=== PATIENT | male | born 1995 | race Caucasian/White ===

== ENCOUNTER 2022-11-01 19:32 | Observation (INO) | payer OTHER, SELFPAY ==
[2022-11-01] VITALS (21 sets, daily range): BP systolic 107–155; BP diastolic 60–83; PULSE 85–116; RESP 12–28; TEMP 36.9–39.1; O2SAT 94–99
--- NOTE | ~2022-11-01 | XR_ITS ---
EXAMINATION: XR chest 1V portable DATE: 11/01/2022 21:27 INDICATION: Fever. Twitching. TECHNIQUE: frontal view of the chest was obtained. COMPARISON: None FINDINGS: The lungs are clear with no focal airspace opacities, pulmonary edema, pleural effusion or pneumothor ax. The cardiomediastinal silhouette is normal. Visualized bones and soft tissues are unremarkable. IMPRESSION: 1. Normal chest radiograph. Reviewed, dictated and finalized at location A. IMPRESSION: 1. Normal chest radiograph.
--- NOTE | ~2022-11-01 | XR_ITS ---
EXAMINATION: XR lumbar puncture diagnostic DATE: 11/02/2022 12:24 INDICATION: Headache. Sepsis. TECHNIQUE: The procedure including the risks, benefits, and alternatives was discussed with the patie nt. Risks discussed included spinal headache, cerebrospinal fluid leak, bleeding, and infection. The patient understood the risks and agreed to proceed. A timeout was performed to verify the patient' s name, date of , and procedure to be performed. The skin overlying the L3-L4 level was prepped and draped in usual sterile fashion. Subcutaneous 1% lidocaine was used for local anesthesia. A 20 gauge spinal needle was advanced under fluoroscopic guidance. The needle was removed and the entry s ite was cleaned and dressed. There were no immediate complications. Fluoroscopy exposure time was 0. 1 minutes. The total number of images was 1. FINDINGS: Real-time fluoroscopy demonstrates the needle at the L3-L4 level. The opening pressure was 13 cm water (Normal range is variably defined as 6-20 cm water and up to 25 cm water in obese patient s. Pressure >25 cm water is one of the modified Dandy criteria for idiopathic intracranial hypertensi on). 15 mL of clear, colorless fluid was collected in 4 tubes. IMPRESSION: 1. Successful fluoro-guided lumbar puncture. Reviewed, dictated and finalized at location A.
--- NOTE | ~2022-11-01 | CT_ITS ---
EXAMINATION: CT brain wo con INDICATION: Headache and vision changes COMPARISON: None TECHNIQUE: Standard unenhanced head CT. The dose-length product (DLP) was 605.33 mGy-cm. The mA was a djusted according to patient size. Iterative reconstruction technique was employed. FINDINGS: There is no intracranial hemorrhage, acute infarction, or abnormal mass lesion. The ventric les are normal. There is no abnormal mass effect or midline shift. The cee-white matter differentiat ion is normal. The basal cisterns are patent. The orbits are normal. There is mild mucosal thickening of the paranasal sinuses. IMPRESSION: 1. No acute intracranial abnormality. Reviewed, dictated and finalized at location B.
[2022-11-01 20:04] LABS: Basophils Absolute Auto 0.1 K/mm3 (0.0-0.1); Basophils Percent Auto 0.2 % (0.2-1.2); Hemoglobin 15.8 g/dL (14.0-18.0); Immature Granulocyte Absolute 0.13 K/mm3 (0.00-0.031); Immature Granulocyte Percent A 0.6 % (0-0.5); Lymphocytes Absolute Auto 0.61 K/mm3 (0.9-3.2); Mean Corpuscular HGB Conc 35.9 g/dl (32-36); Mean Corpuscular Hemoglobin 32.2 pg (26-34); Mean Corpuscular Volume 89.6 fl (80-100); Mean Platelet Volume 8.8 fl (7.4-10.4); Monocytes Percent Auto 4.9 % (2.6-8.5); Neutrophils Absolute Auto 18.8 K/mm3 (1.3-6.7); Neutrophils Percent Auto 91.3 % (45.5-73.1); Platelet Count Result 299 k/mm3 (150-375); Red Blood Count 4.91 M/mm3 (4.6-6.20); Red Cell Distribution Width 12.1 % (11.5-14.5); White Blood Count 20.6 K/mm3 (4.5-10.0)
[2022-11-01 20:14] LABS: Ethanol < 10 mg/dL (<10)
[2022-11-01 20:22] LABS: Alanine Aminotransferase 30 U/L (6-50); Albumin Level 4.8 g/dL (3.5-5.1); Alkaline Phosphatase 48 U/L (38-126); Anion Gap 10 mmol/L (8-16); Aspartate Amino Transferase 45 U/L (17-59); Bilirubin,Total 1.1 mg/dL (0.2-1.3); Blood Urea Nitrogen 18 mg/dL (9-20); Calcium 9.3 mg/dL (8.4-10.2); Carbon Dioxide 26 mmol/L (22-30); Chloride 101 mmol/L (98-107); Estimated CRCL calculation 94 ml/min; Estimated Glomerular Filt Rate > 60; Glucose 119 mg/dL (65-110); Potassium 3.7 mmol/L (3.4-5.0); Sodium 137 mmol/L (137-145)
[2022-11-01 20:28] LABS: Band Neutrophils Percent 40 % (0-6); Lymphocytes Absolute Manual 0.61 K/mm3 (1.1-4.5); Monocytes Absolute Manual 0.41 K/mm3 (0.1-0.90); Monocytes Percent Manual 2 % (3-9); Neutrophils Absolute Manual 19.57 K/mm3 (1.3-6.7); Neutrophils Percent Manual 55 % (46-73); Platelet Estimate Adequate (Adequate); Total Cells Counted 100
[2022-11-01 20:29] LABS: Schistocytes None Seen (NORMAL)
--- NOTE | 2022-11-01 21:02 | ECG_ITS ---
Measurements Intervals [place] Rate: 87 P: 64 TN: 166 QRS: 53 QRSD: 92 T: 19 QT: 329 QTc: 397 Interpretive Statements SINUS RHYTHM NO PREVIOUS ECG AVAILABLE FOR COMPARISON Electronically Signed On 11-02-2022 13:46:00 CDT by Rashmi Nevarez M.D.
[2022-11-01] MEDS: ACETAMINOPHEN 500 MG TABLET 1000 MG PO (21:13)
[2022-11-01] MEDS: SODIUM CHLORIDE 0.9% IV 1,000 ML 999 ML IV CONT ×3 (21:14→21:56)
[2022-11-01 21:39] LABS: Erythrocyte Sedimentation Rate 11 mm/hr (0-20)
[2022-11-01 21:49] LABS: Lactic Acid Reflex 1.5 mmol/L (0.7-2.0)
[2022-11-01 21:49] LABS: Creatine Kinase 251 U/L (55-170)
[2022-11-01 21:50] LABS: Monoscreen Negative (Negative); Negative Monotest Control Negative (Negative); Positive Monotest Control Positive (Positive)
[2022-11-01 21:52] LABS: CRP 1.8 mg/dL (<1.0); Magnesium 1.3 mg/dL (1.6-2.3)
[2022-11-01] MEDS: PIPERACILLN/TAZ 3.375GM/NS50ML 3.375 GM/50 ML BAG IVPB (21:55)
[2022-11-01 22:00] LABS: Strep Group A RT-PCR NOT DETECTED (Negative)
[2022-11-01 22:14] LABS: Influenza A QL RT-PCR Negative (Negative); Influenza B QL RT-PCR Negative (Negative); RSV RNA, RT-PCR Negative (Negative); SARS-CoV-2 RNA PCR Negative (Negative)
[2022-11-01 22:24] LABS: Appearance Urine Clear (Clear); Bilirubin Urine Negative (Negative); Blood Urine Negative (Negative); Color Urine Yellow (Yellow); Glucose Urine UA Negative (Negative); Ketones Urine Negative (Negative); Leukocyte Esterase Ur Negative LEU/UL (Negative); Nitrate Urine Negative (Negative); Protein Urine Negative (Negative)
--- NOTE | 2022-11-01 22:37 | ED.GENADULT ---
HPI - General Adult General Chief complaint: Unspecified Stated complaint: fever, twitching Time Seen by Provider: 11/01/22 20:49 History of Present Illness HPI narrative: Patient is a 26-year-old gentleman who presents the emergency department with chief complaint of fever and body aches and twitching. Per the patient he reports that today he started having a low-grade temperature and was working outside. The patient states that when he came back inside afterwards he is went up to 103 on his fever patient reports generalized body aches does report a headache and then reported that he started having twitching and involuntary muscle movements of his body when he was running a fever. The patient denies altered mental status denies focal neurological deficit Related Data Allergies Allergy/AdvReac Type Severity Reaction Status Date / Time No Known Allergies Allergy Verified 11/01/22 19:38 Course Vital Signs Vital signs: Vital Signs Temperature 37.8 C H 11/01/22 19:33 Pulse Rate 116 H 11/01/22 19:33 Respiratory Rate 12 11/01/22 19:33 Blood Pressure 131/79 11/01/22 19:33 Pulse Oximetry 99 11/01/22 19:33 Oxygen Delivery Room Air 11/01/22 19:33 Temperature 36.9 C 11/01/22 22:00 Pulse Rate 85 11/01/22 22:00 Respiratory Rate 20 11/01/22 22:00 Blood Pressure 155/69 H 11/01/22 22:00 Pulse Oximetry 97 11/01/22 22:00 Oxygen Delivery Room Air 11/01/22 19:33 Medical Decision Making [facility] [place] Narrative Medical decision making narrative: Differential diagnosis includes sepsis, viral syndrome, heat exhaustion/stroke electrolyte abnormality, Laboratory studies were obtained and the patient showed a white count of 20,000 with a 40% bandemia this was concerning for sepsis and the patient was emergently given 30/kg of normal saline boluses and was given antipyretics. The patient was also started on broad-spectrum antibiotic coverage including Zosyn and vancomycin blood cultures were obtained on the patient lactic acid was also obtained. Lactic acid was l 1.5. Electrolytes were otherwise within normal limits magnesium was 1.3 this was replaced with 2 g of magnesium sulfate. Patient had an elevated CRP at 1.8 this is only slightly elevated and CRP was elevated at 251. The patient is starting to feel better the muscle twitching has stopped at this time the case was discussed with the hospitalist and the patient will be admitted to the hospital also urinalysis and urine drug screen were negative strep and COVID and influenza and mono spot were all negative Chest x-ray showed no evidence of focal infiltrate Vital Signs Vital Signs: Vital Signs Temperature 37.8 C H 11/01/22 19:33 Pulse Rate 116 H 11/01/22 19:33 Respiratory Rate 12 11/01/22 19:33 Blood Pressure 131/79 11/01/22 19:33 Pulse Oximetry 99 11/01/22 19:33 Oxygen Delivery Room Air 11/01/22 19:33 Temperature 36.9 C 11/01/22 22:00 Pulse Rate 85 11/01/22 22:00 Respiratory Rate 20 11/01/22 22:00 Blood Pressure 155/69 H 11/01/22 22:00 Pulse Oximetry 97 11/01/22 22:00 Oxygen Delivery Room Air 11/01/22 19:33 Lab Data 11/01/22 19:55 11/01/22 19:55 Labs: Lab Results 11/01/22 11/01/22 11/01/22 Range/Units 19:55 21:24 21:33 WBC 20.6 H (4.5-10.0) K/mm3 RBC 4.91 (4.6-6.20) M/mm3 Hgb 15.8 (14.0-18.0) g/dL Hct 44.0 (42.0-52.0) % MCV 89.6 (80-100) fl MCH 32.2 (26-34) pg MCHC 35.9 (32-36) g/dl RDW 12.1 (11.5-14.5) % Plt Count 299 (150-375) k/mm3 MPV 8.8 (7.4-10.4) fl Immature Gran % (Auto) 0.6 H (0-0.5) % Neut % (Auto) 91.3 H (45.5-73.1) % Lymph % (Auto) 3.0 L (18.3-44.2) % [place] % (Auto) 4.9 (2.6-8.5) % Eos % (Auto) 0.0 (0-4.4) % Baso % (Auto) 0.2 (0.2-1.2) % Lymph # (Auto) 0.61 L (0.9-3.2) K/mm3 [place] # (Auto) 1.0 H (0.1-0.6) K/mm3 Eos # (Auto) 0.0 (0-0.3) K/mm3 Baso # (Auto) 0.1
[2022-11-01 22:39] LABS: Amphetamine Screen Urine Negative (Negative); Barbiturate Screen Urine Negative (Negative); Benzodiazepines Screen Urine Negative (Negative); Cannabinoid Screen Urine Negative (Negative); Cocaine Screen Urine Negative (Negative); Methadone Screen Urine Negative (Negative); Opiate Screen Urine Negative (Negative); Phencyclidine Screen Urine Negative (Negative)
[2022-11-01] MEDS: MAGNESIUM SULF 2 GM/WATER 50ML 2 GM/50 ML BAG IVPB (22:40)
[2022-11-01 22:41] LABS: Add Urine Microscopic? NO
--- NOTE | 2022-11-01 22:43 | PM.IMHP ---
H&P: HPI History of Present Illness Date/Time: 11/01/22 22:43 Chief Complaint: Fever Narrative: This is a 26-year-old male with known significant past medical history patient presents to the emergency room after he had an episode of fever and rigors, patient has been his usual state of health up until this point had been outside doing some yd work but had gone back in the house for several hours, the day before was fine, denies any nausea, vomiting, diarrhea, abdominal pain complains of body aches and pains muscle pain, twitching he was found to have a temp of 103? a headache and blurry vision no neck pain or neck rigidity in emergency room his temperature was 98 ? no recent travel, no camping, no lymphadenopathies, no cough, no sputum production, no sore throat, no nasal congestion, no chest congestion. Preliminary workup was significant for a white count of 20,000 with a band count of 40% a chest x-ray was reported as: EXAMINATION: XR chest 1V portable DATE: 11/01/2022 21:27 INDICATION: Fever. Twitching. TECHNIQUE: frontal view of the chest was obtained. COMPARISON: None FINDINGS: The lungs are clear with no focal airspace opacities, pulmonary edema, pleural effusion or pneumothorax. The cardiomediastinal silhouette is normal. Visualized bones and soft tissues are unremarkable. IMPRESSION: 1. Normal chest radiograph. Review of Systems Review of Systems: Fever, muscle aches and pains, twitching Constitutional: Constitutional: Reports chills, Reports fever(s), Reports headache(s) and Denies poor appetite Eyes: Eyes: Reports blurry vision ENT: Denies dysphagia, Denies nasal congestion, Denies nasal discharge and Denies odynophagia Cardiovascular: Cardiovascular: Denies chest pain, Denies leg edema and Denies palpitations Respiratory: Respiratory: Denies chest congestion, Denies cough, Denies excessive phlegm production and Denies pain on inspiration Gastrointestinal: Gastrointestinal: Denies abdominal pain, Denies dyspepsia, Denies heartburn, Denies diarrhea, Denies loose stools, Denies nausea and Denies vomiting Genitourinary: Genitourinary: Denies dysuria and Denies flank pain Musculoskeletal: Musculoskeletal: Reports myalgias, Reports muscle cramps, Denies neck pain and Denies stiffness Integumentary/Breasts: Skin/Breast: Denies rash Neurologic: Denies focal weakness and Denies Sensory deficit (Neuro) Psychiatric: Psychiatric: Reports no additional psychiatric complaints and Reports as per HPI Endocrine: Endocrine: Denies cold intolerance, Denies flushing, Denies heat intolerance, Denies polyphagia, Denies polydipsia and Denies palpitations Hematologic/Lymphatic: Hematologic/Lymphatic: Reports no additional hematologic/lymphatic complaints and Reports as per HPI Allergic/Immunologic: Allergic/Immunologic: Reports no additional allergic/immunologic complaints and Reports as per HPI PMFSH Family History Family History (Updated 11/02/22 @ 00:03 by Luz Sandy RN) Mother Acute myocardial infarction Hypertension Grandparent Acute myocardial infarction Asthma Cerebrovascular accident History of blood clots Chronic obstructive pulmonary disease Colon cancer Congestive heart failure Diabetes mellitus Hypertension Sibling Asthma Father Diabetes mellitus Prostate carcinoma Social History Social History Smoking status: Current every day smoker Tobacco type: e-cigarettes/vaping Alcohol intake: never Substance use: never Lack of Transportation: No Lack of Food: Never True Current Housing: I Have Housing Concerned About Future Housing: No Difficulty Paying Gas/Electric Bills: No Difficulty Paying for Meds: No Currently Unemployed: No Education: High School Diploma/GED Difficulty w/ Childcare or Family Care: No Spiritual care concerns: No Meds Home Medications and Allergies Home Medications Medication Instructions Recorded Confirmed Type
--- NOTE | 2022-11-01 23:59 | ADMGEN ---
This patient, Salvador Renae, was admitted to Medical Room 349-01. Patient/family oriented to hospital policies and general routines including ID bracelet, bed and alarms, visiting hours, pain management, procedures, bathroom and other care routines, personal items, smoking policy, room service/diet, and visiting hours. Information on how to activate the Rapid Response Team has been discussed. Patient/Family are encouraged to report perceived risks to care and to ask questions if they do not understand what they are told or what they should do.
[2022-11-02] VITALS (8 sets, daily range): BP systolic 116–132; BP diastolic 55–70; PULSE 81–93; RESP 17–20; TEMP 36.3–37.2; O2SAT 92–97; BMI 25.9
[2022-11-02 01:38] LABS: Hematocrit 39.9 % (42.0-52.0); Hemoglobin 14.1 g/dL (14.0-18.0); Mean Corpuscular HGB Conc 35.3 g/dl (32-36); Mean Corpuscular Hemoglobin 32.3 pg (26-34); Mean Corpuscular Volume 91.5 fl (80-100); Mean Platelet Volume 8.8 fl (7.4-10.4); Platelet Count Result 255 k/mm3 (150-375); Red Blood Count 4.36 M/mm3 (4.6-6.20); Red Cell Distribution Width 12.2 % (11.5-14.5); White Blood Count 20.2 K/mm3 (4.5-10.0)
[2022-11-02 01:56] LABS: Alanine Aminotransferase 23 U/L (6-50); Albumin Level 3.5 g/dL (3.5-5.1); Alkaline Phosphatase 38 U/L (38-126); Anion Gap 6 mmol/L (8-16); Aspartate Amino Transferase 26 U/L (17-59); Bilirubin,Total 1.4 mg/dL (0.2-1.3); Blood Urea Nitrogen 15 mg/dL (9-20); Calcium 8.2 mg/dL (8.4-10.2); Carbon Dioxide 25 mmol/L (22-30); Chloride 106 mmol/L (98-107); Estimated CRCL calculation 103 ml/min; Estimated Glomerular Filt Rate > 60; Glucose 120 mg/dL (65-110); Magnesium 2.1 mg/dL (1.6-2.3); Potassium 3.4 mmol/L (3.4-5.0); Sodium 137 mmol/L (137-145)
[2022-11-02 02:01] LABS: Band Neutrophils Percent 58 % (0-6); Lymphocytes Absolute Manual 1.21 K/mm3 (1.1-4.5); Metamyelocytes Percent 3 %; Monocytes Percent Manual 1 % (3-9); Neutrophils Absolute Manual 18.18 K/mm3 (1.3-6.7); Neutrophils Percent Manual 32 % (46-73); Platelet Estimate Adequate (Adequate); Total Cells Counted 100
[2022-11-02 02:02] LABS: Burr Cells 1+ (NORMAL); Poikilocytosis 1+ (NORMAL); Schistocytes None Seen (NORMAL)
[2022-11-02] MEDS: SODIUM CHLORIDE 0.9% IV 1,000 ML 125 ML IV CONT (02:20)
[2022-11-02] MEDS: PIPERACILLN/TAZ 3.375GM/NS50ML 3.375 GM/50 ML BAG IVPB (06:09)
--- NOTE | 2022-11-02 10:42 | PM.IMPN ---
Progress Note: A&P Assessment and Plan (1) Sepsis: Qualifiers: Sepsis acute organ dysfunction status: unspecified Sepsis type: sepsis due to unspecified organism Qualified Code(s): A41.9 - Sepsis, unspecified organism Code(s): A41.9 - Sepsis, unspecified organism Status: Acute Assessment and Plan: patient presented with fever, tachycardia, leukocytosis WBC 20 with 20% bandemia and suspected infection. He was treated with empiric vancomycin and Zosyn IV 3 liters NS fluids given in ED. Monitor hemodynamics. Blood cultures pending. (2) Acute febrile illness: Code(s): R50.9 - Fever, unspecified Status: Acute Assessment and Plan: As above. Continue sepsis work up and supportive care with antipyretics. Will check 4th gen HIV 1/2 for completion sake. He has not has been tested to his knowledge. (3) Meningitis: Code(s): G03.9 - Meningitis, unspecified Status: Suspected Assessment and Plan: Patient presented with sepsis picture and fever >103F with associated GARCIA, vision changes, malaise, generalized pain that is burning in sensation suggesting neuropathy. Concern for possible meningitis/encephalitis change antibiotics to IV Vancomycin with pharmacy dosing, IV Rocephin 2 grams Q12 hours, and Acyclovir 800 mg Q8 hours LP today with CSF cell count, gram stain, fluid culture, HSV, Lyme, EBV, and VDRL. Serum ZVZ, Lyme antibody, and CMV. Monitor neuro status continue antipyretics for fever and pain. Consider neurology consult if symptoms worsen. CT head negative for acute findings. Plan code status: full code discharge disposition: from home, independent ADLs Antibiotic: day 1 Rocephin and Azithromycin. Day 2 Vancomycin Diet: Regular Time Spent With Patient Time with patient: 25 - 35 minutes Subjective Date/time seen: 11/02/22 10:42 Interval history: Patient lying in bed with mother at bedside. He reports generalized body aches with a burning sensation. He has a headache that is prominent behind his eyes and endorses blurry vision. His mother reports the patient had unusual, uncontrollable head shaking prior to coming to the ED and reportedly had involuntary knee knocking on the way to the hospital. The patient was reportedly not conscious of this. He denies recent medication changes, change in food or liquid intake. No recent camping trips or known sick contacts. 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 He denies cough, SOB, chest pain, palpitations, sputum, N/V/D, abd pain, dysuria, flank pain. He had a recent tattoo to his abdomen, but denies complications. No penile ulcers or abnormal discharge. He is in a monogamous relationship for the past year and denies concern for STIs. He had numerous vaccinations when entering service but is unsure which ones. 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 Review of Systems Review of Systems: All systems reviewed & are unremarkable except as noted in HPI and below Exam Narrative: General: No acute respiratory distress.?Ill-appearing adult male lying in bed. Mental Status/Psych: Awake, tired appearing and oriented x4. Cooperative. Neutral mood and affect. Skin: fair, warm, dry and intact without rashes or lesions. Multiple tattoos to chest, trunk, BUE and LLE. No erythema, edema, or discharge noted. HEENT: Normocephalic. Atraumatic. Sclera non-icteric. PERRL. EOM intact without nystagmus. Oral mucosa pink and dry. oropharynx unremarkable. Neck: Supple. No JVD. Heart: S1 and S2 regular rate and rhythm. No murmurs, gallops, or rubs auscultated. Chest: Respirations even and unlabored. Lung sounds are clear to auscultation without wheezes, rhonchi, or rales. Abd
[2022-11-02] MEDS: cefTRIAXone 2 GM/NS 100 ML 2 GM/100 ML BAG IVPB ×2 (11:08→21:43)
[2022-11-02 11:22] LABS: Creatine Kinase 148 U/L (55-170)
[2022-11-02 11:24] LABS: INR 1.3; Prothrombin Time 17.3 Seconds (11.1-14.7)
[2022-11-02 11:26] LABS: Partial Thromboplastin Time 36.7 SECONDS (22.3-36.8)
[2022-11-02 11:52] LABS: Procalcitonin 1.4 ng/mL
[2022-11-02 12:37] LABS: Glucose CSF 68 mg/dL (40-70); Total Protein CSF 71 mg/dL (12-60)
[2022-11-02] MEDS: ACETAMINOPHEN 325 MG TABLET 650 MG PO ×2 (12:37→16:56)
[2022-11-02] MEDS: ACYCLOVIR SODIUM IVPB 800 MG in DEXTROSE 5% IN WATER 250 ML 266 MG IVPB (13:01)
[2022-11-02 13:19] LABS: Appearance CSF Clear (Clear); CSF source CSF; Color CSF Colorless (Colorless); Nucleated Cell CSF 4 /uL (0-5)
[2022-11-02 13:21] LABS: Red Blood Cell CSF < 2000 (0-2)
[2022-11-02 13:26] LABS: Macrophages CSF 5; Monocytes CSF 25 % (15-45); Other Cells CSF 10 %
[2022-11-02 13:27] LABS: Lymphocytes CSF 60 % (40-80)
[2022-11-02] MEDS: ACYCLOVIR SODIUM IVPB 800 MG in DEXTROSE 5% IN WATER 250 ML 250 MG IVPB (21:44)
[2022-11-03 05:10] VITALS: BP 126/64; PULSE 84; RESP 18; TEMP 37.4; O2SAT 94
[2022-11-03 05:48] LABS: Basophils Percent Auto 0.3 % (0.2-1.2); Eosinophils Absolute Auto 0.1 K/mm3 (0-0.3); Eosinophils Percent Auto 0.6 % (0-4.4); Hematocrit 39.7 % (42.0-52.0); Immature Granulocyte Absolute 0.04 K/mm3 (0.00-0.031); Immature Granulocyte Percent A 0.4 % (0-0.5); Lymphocytes Absolute Auto 1.58 K/mm3 (0.9-3.2); Mean Corpuscular HGB Conc 35.3 g/dl (32-36); Mean Corpuscular Volume 90.6 fl (80-100); Mean Platelet Volume 8.8 fl (7.4-10.4); Monocytes Absolute Auto 0.7 K/mm3 (0.1-0.6); Monocytes Percent Auto 5.9 % (2.6-8.5); Neutrophils Absolute Auto 8.9 K/mm3 (1.3-6.7); Neutrophils Percent Auto 78.8 % (45.5-73.1); Platelet Count Result 267 k/mm3 (150-375); Red Blood Count 4.38 M/mm3 (4.6-6.20); Red Cell Distribution Width 12.2 % (11.5-14.5); White Blood Count 11.3 K/mm3 (4.5-10.0)
[2022-11-03 06:11] LABS: Alanine Aminotransferase 26 U/L (6-50); Albumin Level 3.8 g/dL (3.5-5.1); Alkaline Phosphatase 45 U/L (38-126); Anion Gap 6 mmol/L (8-16); Aspartate Amino Transferase 32 U/L (17-59); Bilirubin,Total 0.6 mg/dL (0.2-1.3); Blood Urea Nitrogen 7 mg/dL (9-20); Calcium 8.5 mg/dL (8.4-10.2); Carbon Dioxide 26 mmol/L (22-30); Chloride 106 mmol/L (98-107); Estimated CRCL calculation 103 ml/min; Estimated Glomerular Filt Rate > 60; Glucose 101 mg/dL (65-110); Potassium 3.9 mmol/L (3.4-5.0); Sodium 138 mmol/L (137-145)
[2022-11-03] MEDS: ACYCLOVIR SODIUM IVPB 800 MG in DEXTROSE 5% IN WATER 250 ML 250 MG IVPB ×2 (06:44→15:05)
[2022-11-03 08:00] VITALS: PULSE 84; RESP 18; O2SAT 94
[2022-11-03 08:06] LABS: Procalcitonin 1.2 ng/mL
[2022-11-03] MEDS: ACETAMINOPHEN 325 MG TABLET 650 MG PO ×3 (08:15→22:05)
[2022-11-03 09:19] LABS: HIV 1/2 Ab P24 Ag Result Negative (Negative)
[2022-11-03] MEDS: cefTRIAXone 2 GM/NS 100 ML 2 GM/100 ML BAG IVPB ×2 (09:35→21:58)
[2022-11-03 10:28] LABS: Vancomycin Trough 8.2 ug/mL (10.0-20.0)
[2022-11-03 14:00] VITALS: BP 108/58; PULSE 63; RESP 18; TEMP 36.8; O2SAT 100
--- NOTE | 2022-11-03 17:26 | PM.IMPN ---
Progress Note: A&P Assessment and Plan (1) Sepsis: Qualifiers: Sepsis acute organ dysfunction status: unspecified Sepsis type: sepsis due to unspecified organism Qualified Code(s): A41.9 - Sepsis, unspecified organism Code(s): A41.9 - Sepsis, unspecified organism Status: Acute Assessment and Plan: patient presented with fever, tachycardia, leukocytosis WBC 20 with 20% bandemia and suspected infection. He was treated with empiric vancomycin and Zosyn IV. 11/02/22 changed to IV vancomycin, IV Rocephin q.12 and IV acyclovir for concerns of meningitis/encephalitis 3 liters NS fluids given in ED. Monitor hemodynamics. Blood cultures negative today Hemodynamically stable (2) Meningitis: Code(s): G03.9 - Meningitis, unspecified Status: Suspected Assessment and Plan: Patient presented with sepsis picture and fever >103F with associated GARCIA, vision changes, malaise, generalized pain that is burning in sensation suggesting neuropathy. Concern for possible meningitis/encephalitis change antibiotics to IV Vancomycin with pharmacy dosing, IV Rocephin 2 grams Q12 hours, and Acyclovir 800 mg Q8 hours 11/02 LP completed. CSF cell count showing clear, colorless CSF fluid greater than 2000 RBCs, neutrophils/lymphocytes/monocytes all within normal limits. Total protein mildly elevated 71 but may be secondary to traumatic tap. gram stain with rare wbc's but knows organism seen at this time, fluid culture pending. viral CSF tests HSV, Lyme, EBV, and VDRL pending. Serum ZVZ, Lyme antibody, and CMV pending Monitor neuro status continue antipyretics for fever and pain. Consider neurology consult if symptoms worsen. Will hold off for now as patient appears to be improving CT head negative for acute findings. WBC 20 to 11 today 11/03. (3) Acute febrile illness: Code(s): R50.9 - Fever, unspecified Status: Acute Assessment and Plan: As above. Continue sepsis work up and supportive care with antipyretics. 4th gen HIV 1/2 negative. Improving Plan code status: full code discharge disposition: from home, independent ADLs Antibiotic: day 2 Rocephin and Azithromycin. Day 3 Vancomycin Diet: Regular Time Spent With Patient Time with patient: 25 - 35 minutes Subjective Date/time seen: 11/03/22 17:26 Interval history: Patient reports he is feeling better and has not had a fever in the past 24 hours. His headache is improved in vision changes have resolved. He denies a general body aches today. Neuropathy unchanged. His mother and significant other are at bedside and report no abnormal muscle movements or mental status changes. Exam Narrative: General: No acute respiratory distress.?adult male lying in bed. Nontoxic. Mental Status/Psych: Awake, oriented x4. Cooperative. Neutral mood and affect. Skin: fair, warm, dry and intact without rashes or lesions. Multiple tattoos to chest, trunk, BUE and LLE. No erythema, edema, or discharge noted. HEENT: Normocephalic. Atraumatic. Sclera non-icteric. PERRL. EOM intact without nystagmus. Oral mucosa pink and dry. Neck: Supple. No JVD. Heart: S1 and S2 regular rate and rhythm. No murmurs, gallops, or rubs auscultated. Chest: Respirations even and unlabored. Lung sounds are clear to auscultation without wheezes, rhonchi, or rales. Abdomen: Soft, round and non-tender to palpation.? Bowel sounds present in all 4 quadrants. No guarding, suprapubic or CVA tenderness. Extremities:? No edema, erythema or calf tenderness. Major joints without erythema, effusion or point tenderness. Muscle strength 5/5 all extremities. Neurological: No focal deficits. neuropathy toes on left side. Cranial nerves grossly 2-12 intact.Follows all commands. no tremors or fasciculations. ? Objective Data Vital Signs Vital Signs: Vital Signs - 24 hr 11/02/22 20:46 11/02/22 20:00 11/03/22 05:10 Temperature 98.3 F 99.4 F Pu
[2022-11-03 20:00] VITALS: BP 122/66; PULSE 83; RESP 18; TEMP 36.2; O2SAT 97
[2022-11-03] MEDS: ACYCLOVIR SODIUM IVPB 800 MG in DEXTROSE 5% IN WATER 250 ML 125 MG IVPB (21:58)
[2022-11-03] MEDS: IBUPROFEN 400 MG TABLET PO (23:21)
[2022-11-04 06:06] VITALS: BP 122/65; PULSE 77; RESP 16; TEMP 36.7; O2SAT 98
[2022-11-04 06:35] LABS: Basophils Percent Auto 0.4 % (0.2-1.2); Eosinophils Absolute Auto 0.2 K/mm3 (0-0.3); Hematocrit 38.8 % (42.0-52.0); Hemoglobin 13.7 g/dL (14.0-18.0); Immature Granulocyte Absolute 0.04 K/mm3 (0.00-0.031); Immature Granulocyte Percent A 0.5 % (0-0.5); Lymphocytes Absolute Auto 2.22 K/mm3 (0.9-3.2); Lymphocytes Percent Auto 27.8 % (18.3-44.2); Mean Corpuscular HGB Conc 35.3 g/dl (32-36); Mean Corpuscular Volume 90.7 fl (80-100); Mean Platelet Volume 8.8 fl (7.4-10.4); Monocytes Absolute Auto 0.7 K/mm3 (0.1-0.6); Monocytes Percent Auto 8.8 % (2.6-8.5); Neutrophils Absolute Auto 4.8 K/mm3 (1.3-6.7); Neutrophils Percent Auto 59.5 % (45.5-73.1); Platelet Count Result 268 k/mm3 (150-375); Red Blood Count 4.28 M/mm3 (4.6-6.20); Red Cell Distribution Width 12.3 % (11.5-14.5)
[2022-11-04] MEDS: ACYCLOVIR SODIUM IVPB 800 MG in DEXTROSE 5% IN WATER 250 ML 125 MG IVPB (06:45)
[2022-11-04 08:26] LABS: Hepatitis B Surface Antigen Negative (Negative)
[2022-11-04 08:32] LABS: HAV RESULT Negative (Negative); Hepatitis B Core IgM Result Negative (Negative)
[2022-11-04] MEDS: cefTRIAXone 2 GM/NS 100 ML 2 GM/100 ML BAG IVPB (08:38)
[2022-11-04 08:43] LABS: Hepatitis C Virus Antibody Negative (Negative)
--- NOTE | 2022-11-04 11:44 | PM.DS ---
DS: Admitting Diagnosis Discharge Date 11/04/2022 Admitting Diagnosis Acute febrile illness Sepsis DS: Discharge Diagnosis Discharge Diagnosis (1) Sepsis: Qualifiers: Sepsis acute organ dysfunction status: unspecified Sepsis type: sepsis due to unspecified organism Qualified Code(s): A41.9 - Sepsis, unspecified organism Code(s): A41.9 - Sepsis, unspecified organism Status: Acute Assessment and Plan: patient presented with fever, tachycardia, leukocytosis WBC 20 with 20% bandemia and suspected infection. He was treated with empiric vancomycin and Zosyn IV. 11/02/22 changed to IV vancomycin, IV Rocephin q.12 and IV acyclovir for concerns of meningitis/encephalitis 3 liters NS fluids given in ED. Blood cultures negative x48 hours. Hemodynamically stable (2) Meningitis: Code(s): G03.9 - Meningitis, unspecified Status: Suspected Assessment and Plan: Patient presented with sepsis picture and fever >103F with associated GARCIA, vision changes, malaise, generalized pain that is burning in sensation suggesting neuropathy. Concern for possible meningitis/encephalitis changde antibiotics to IV Vancomycin with pharmacy dosing, IV Rocephin 2 grams Q12 hours, and Acyclovir 800 mg Q8 hours 11/02 LP completed. CSF cell count showing clear, colorless CSF fluid greater than 2000 RBCs, neutrophils/lymphocytes/monocytes all within normal limits. Total protein mildly elevated 71 but may be secondary to traumatic tap. gram stain with rare wbc's but knows organism seen at this time, fluid culture without growth x48 hours. viral CSF tests HSV, Lyme, EBV, and VDRL pending. Serum ZVZ, Lyme antibody, and CMV pending Monitor neuro status continue antipyretics for fever and pain. CT head negative for acute findings. WBC 20 to 11 to 8.2 on 11/04. Afebrile >48 hours. (3) Acute febrile illness: Code(s): R50.9 - Fever, unspecified Status: Acute Assessment and Plan: As above. Continue sepsis work up and supportive care with antipyretics. 4th gen HIV 1/2 negative. Resolved. DS: Summary Hospital Course Reason for hospitalization: fever Hospital Course: Patient is a 26-year-old male with neuropathy during his time in the , but otherwise healthy. He presented to the emergency room after he had an episode of fever Tmax 103F and rigors. He also was noted to have uncontrolled head and leg movements, but did not appear to be having a seizure, reportedly. He had associated generalized myalgias, malaise, headache and blurry vision. Prior to admission, he was outside doing yard work for approximately 4 hours, but this is not unusual for the patient. He denied change in eating or drinking habits, nausea, vomiting, diarrhea, abdominal pain, neck pain or neck rigidity. He denied recent travel, camping, rashes, penile lesions or discharge, lymphadenopathy, cough, sputum production, sore throat, nasal congestion, or chest congestion.? Preliminary workup was significant for a white count of 20,000 with bandemia of 40%. Chest x-ray was negative. He was admitted to the medical floor and treated with IV fluids. He was given IV Vancomycin and IV Zosyn in the ED. WBC remained elevated 20 after 24 hours and he had low grade fevers. He continued to have GARCIA, blurry vision and generalized myalgias. Lumbar puncture was obtained and CSF fluid was sent for culture, gram stain, lyme and viral serology. Serum viral serology was sent. Serum hepatitis and HIV 1/2. Serum HSV, EBV, and ZVZ were pending at discharge. Serum lyme was pending at discharge. Gram stain and CSF culture were negative. CSF fluid was colorless, normal neutrophil count, glucose was normal, total protein was mildly elevated and increased RBC were noted. Zosyn was stopped. IV Rocephin 2 grams Q24 hour and Acyclovir 800 mg Q8 hours IV for possible meningitis 11/02-11/04. Vancomycin IV was also continued, however, vancomycin troug
[2022-11-06 00:10] LABS: Herpes Simplex Type 1 DNA PCR Not Detected (Not Detected); Herpes Simplex Type 2 DNA PCR Not Detected (Not Detected)
[2022-11-06 01:42] LABS: CMV DNA Quant PCR IU/mL Not Detected; Cytomegalovirus DNA Quant PCR Not Detected log IU/mL; Cytomegalovirus DNA Source Serum
[2022-11-06 13:34] LABS: Epstein Barr Virus DNA PCR Not Detected (Not Detected); Source Epstein Barr Virus CSF
[2022-11-07 14:00] LABS: Lyme Disease Ab (IgM), Blot Negative (Negative); Lyme Disease Ab(IgG), Blot Negative (Negative)
[2022-11-07 14:41] LABS: VDRL Quantitative CSF Nonreactive (Nonreactive)
[2022-11-07 15:42] LABS: Varicella IgM Antibody <=0.90 (<=0.90)
== END 2022-11-04 12:54 | disposition home or self-care (01) ==
LOC: ANHED 22:43 → ANH3MED 11-02 00:47
PROVIDERS: Emergency Medicine; Nurse Practitioner Family; Admitting Provider Internal Medicine; Emergency Provider Emergency Medicine; Visit Provider Student in an Organized Health Care Education/Training Program
DX: A41.9 Sepsis, unspecified organism (principal); G03.9 Meningitis, unspecified; R50.9 Fever, unspecified; M79.10 Myalgia, unspecified site; R25.3 Fasciculation; Z20.822 Contact with and (suspected) exposure to COVID-19; Z11.4 Encounter for screening for human immunodeficiency virus [HIV]; R00.0 Tachycardia, unspecified; D72.829 Elevated white blood cell count, unspecified; R51.9 Headache, unspecified; H53.8 Other visual disturbances
CPT/HCPCS: 36415; 62328; 70450; 71045; 80053; 80074; 80202; 80307; 81003; 82550; 82945; 83605; 83735; 84145; 84157; 85025; 85610; 85652; 85730; 86140; 86308; 86592; 86617; 86703; 86787; 87040; 87070; 87081; 87497; 87529; 87637; 87651; 87798; 88108; 89051; 93005; 96361; 96365; 96366; 96367; 96368; 96376; 99285; A9270; G0378; G0432; J0133; J0696; J2543; J3370; J3475; J7030; J7060

== ENCOUNTER 2023-01-31 19:41 | Emergency (ER) | payer OTHER, SELFPAY ==
[2023-01-31] VITALS (10 sets, daily range): BP systolic 127–144; BP diastolic 61–74; PULSE 97–103; RESP 13–28; TEMP 38.3–39.4; O2SAT 97–100
--- NOTE | ~2023-01-31 | CT_ITS ---
EXAMINATION: CT brain wo con DATE: 01/31/2023 22:41 INDICATION: Headache. TECHNIQUE: Computed tomography (CT) of the head was performed without intravenous contrast. The mA wa s adjusted according to patient size. Iterative reconstruction technique was employed. The dose-lengt h product was 681.00 mGy-cm. COMPARISON: Head CT 11/02/2022 FINDINGS: There is no intracranial hemorrhage, acute infarction, or abnormal intracranial mass lesion . The ventricles are normal in size. There is mucosal thickening in the paranasal sinuses. The orbits are normal. The mastoid air cells are normal. IMPRESSION: 1. Normal brain. Reviewed, dictated and finalized at location E. IMPRESSION: 1. Normal brain.
--- NOTE | ~2023-01-31 | XR_ITS ---
EXAMINATION: XR chest 1V DATE: 01/31/2023 22:44 INDICATION: Febrile illness. TECHNIQUE: A single frontal view of the chest was obtained. COMPARISON: Chest single view 11/01/2022 FINDINGS: Calcified right lung nodules and calcified right hilar lymph nodes are consistent with old granulomatous disease. No pleural effusion or pneumothorax. The heart size is normal. IMPRESSION: 1. No acute cardiopulmonary disease. Reviewed, dictated and finalized at location E.
--- NOTE | 2023-01-31 21:49 | ECG_ITS ---
Measurements Intervals [place] Rate: 98 P: 64 MN: 156 QRS: 60 QRSD: 87 T: 26 QT: 299 QTc: 383 Interpretive Statements SINUS RHYTHM NONSPECIFIC T-WAVE ABNORMALITY- INFERIOR LEADS BORDERLINE ECG COMPARED TO ECG 11/01/2022 21:13:46 NO SIGNIFICANT CHANGES Electronically Signed On 02-01-2023 6:48:40 CDT by Willard Anne D.O.
[2023-01-31] MEDS: SODIUM CHLORIDE 0.9% IV 1,000 ML 999 ML IV CONT ×2 (21:58→22:05)
--- NOTE | 2023-01-31 22:08 | PC.NURSE ---
2201-FAMILY REPORTS PATIENT HAD 1000 MG OF IBUPROFEN AT 1815 WELL TYLENOL FLU AND COLD 2 TABS AT 0800 AND 1900. ERP ADVISED.
--- NOTE | 2023-01-31 22:23 | ED.GENADULT ---
HPI - General Adult General Chief complaint: Fever Stated complaint: fevers, chills, pain Time Seen by Provider: 01/31/23 21:49 History of Present Illness HPI narrative: Patient 47-year-old gentleman who presents the emergency department with chief complaint of febrile illness. Patient reports that was recently in the hospital for a febrile illness and was evaluated for the possibility of meningitis the patient had a positive Lyme test and was discharged on doxycycline the patient reports that he has missed several of his follow-up appointments and today started feeling generalized malaise the patient reports that this evening he spiked a temperature and has taken both Tylenol cold and flu and also has taken ibuprofen. The patient reports that he has generalized body aches reports that he does have a headache with this Related Data Allergies Allergy/AdvReac Type Severity Reaction Status Date / Time No Known Allergies Allergy Verified 11/01/22 19:38 Review of Systems Review of Systems: A 10 system review of systems was completed on the patient and is negative except for what is stated in the HPI. Nursing and ancillary documentation was reviewed. [facility] Family History Family History Mother Acute myocardial infarction Hypertension Grandparent Acute myocardial infarction Asthma Cerebrovascular accident History of blood clots Chronic obstructive pulmonary disease Colon cancer Congestive heart failure Diabetes mellitus Hypertension Sibling Asthma Father Diabetes mellitus Prostate carcinoma Social History Social History Smoking status: Current every day smoker Tobacco type: e-cigarettes/vaping Alcohol intake: never Substance use: never Lack of Transportation: No Lack of Food: Never True Current Housing: I Have Housing Concerned About Future Housing: No Difficulty Paying Gas/Electric Bills: No Difficulty Paying for Meds: No Currently Unemployed: No Education: High School Diploma/GED Difficulty w/ Childcare or Family Care: No Spiritual care concerns: No Exam Narrative: GENERAL: Well-appearing, well-nourished, and in no acute distress. HEAD: Normocephalic, atraumatic. EYES: PERRLA and EOMI. ENT: Nares clear, no rhinorrhea or epistaxis. Mucous membranes moist. NECK: Supple. CHEST: Clear to auscultation. No respiratory distress. HEART: Regular rate and rhythm. No murmur heard. Normal peripheral pulses. ABDOMEN: Soft, nontender, nondistended, normal active bowel sounds. EXTREMITIES: Normal range of motion. No edema. SKIN: Warm, dry, no rash. NEURO: No focal deficits. Alert and oriented x3. PSYCH: Normal mood and affect. Course Vital Signs Vital signs: Vital Signs Temperature 38.8 C H 01/31/23 19:45 Pulse Rate 103 H 01/31/23 19:45 Respiratory Rate 20 01/31/23 19:45 Blood Pressure 144/71 H 01/31/23 19:45 Pulse Oximetry 100 01/31/23 19:45 Oxygen Delivery Room Air 01/31/23 19:45 Temperature 38.3 C H 01/31/23 23:05 Pulse Rate 89 02/01/23 00:46 Respiratory Rate 25 H 02/01/23 00:46 Blood Pressure 104/53 L 02/01/23 00:46 Pulse Oximetry 96 02/01/23 00:46 Oxygen Delivery Room Air 01/31/23 19:45 Medical Decision Making [facility] Narrative Medical decision making narrative: Differential diagnosis includes pharyngitis, viral syndrome, pneumonia, UTI dehydration oncological cause Laboratory studies were obtained showed a white count of 15.7 CMP was obtained which showed labs within normal limits creatinine is 1.1 lactic acid was not elevated CRP is 1.4 sed rate was normal procalcitonin is 1.0 patient is negative for COVID-negative for strep and negative for flu urinalysis was within normal limits. CT head was negative chest x-ray showed no focal infiltrate. After receiving IV fluids the patient is feeling
[2023-01-31 22:48] LABS: Hematocrit 41.5 % (42.0-52.0); Hemoglobin 14.8 g/dL (14.0-18.0); Mean Corpuscular HGB Conc 35.7 g/dl (32-36); Mean Corpuscular Hemoglobin 32.5 pg (26-34); Mean Platelet Volume 9.2 fl (7.4-10.4); Platelet Count Result 247 k/mm3 (150-375); Red Blood Count 4.56 M/mm3 (4.6-6.20); Red Cell Distribution Width 11.9 % (11.5-14.5); White Blood Count 15.7 K/mm3 (4.5-10.0)
[2023-01-31 23:04] LABS: Alanine Aminotransferase 19 U/L (6-50); Albumin Level 4.6 g/dL (3.5-5.1); Alkaline Phosphatase 53 U/L (38-126); Anion Gap 11 mmol/L (8-16); Aspartate Amino Transferase 27 U/L (17-59); Blood Urea Nitrogen 13 mg/dL (9-20); Calcium 9.3 mg/dL (8.4-10.2); Carbon Dioxide 26 mmol/L (22-30); Chloride 102 mmol/L (98-107); Estimated CRCL calculation 70 ml/min; Estimated Glomerular Filt Rate > 60; Glucose 109 mg/dL (65-110); Magnesium 1.5 mg/dL (1.6-2.3); Potassium 3.3 mmol/L (3.4-5.0); Sodium 139 mmol/L (137-145)
[2023-01-31 23:04] LABS: Lactic Acid Reflex 1.4 mmol/L (0.7-2.0)
[2023-01-31 23:14] LABS: INR 1.1; Partial Thromboplastin Time 26.5 SECONDS (22.3-36.8); Prothrombin Time 15.1 Seconds (11.1-14.7)
[2023-01-31 23:15] LABS: CRP 1.4 mg/dL (<1.0)
[2023-01-31] MEDS: MAGNESIUM SULF 2 GM/WATER 50ML 2 GM/50 ML BAG IVPB (23:22)
[2023-01-31 23:24] LABS: Influenza A QL RT-PCR Negative (Negative); Influenza B QL RT-PCR Negative (Negative); SARS-CoV-2 RNA PCR Negative (Negative)
[2023-01-31 23:26] LABS: Strep Group A RT-PCR NOT DETECTED (Negative)
[2023-01-31 23:27] LABS: Band Neutrophils Percent 12 % (0-6); Neutrophils Absolute Manual 14.28 K/mm3 (1.3-6.7); Neutrophils Percent Manual 79 % (46-73); Total Cells Counted 100
[2023-01-31 23:28] LABS: Atypical Lymphocytes Present; Lymphocytes Absolute Manual 0.62 K/mm3 (1.1-4.5); Lymphocytes Percent Manual 4 % (18-44); Monocytes Absolute Manual 0.78 K/mm3 (0.1-0.90); Monocytes Percent Manual 5 % (3-9); Platelet Estimate Adequate (Adequate); Schistocytes None Seen (NORMAL)
[2023-01-31 23:39] LABS: Erythrocyte Sedimentation Rate 12 mm/hr (0-20)
[2023-02-01 00:01] VITALS: BP 118/62; PULSE 92; RESP 27; O2SAT 95
[2023-02-01 00:16] VITALS: O2SAT 95
[2023-02-01 00:19] VITALS: BP 118/61; PULSE 92; RESP 28; O2SAT 96
[2023-02-01 00:37] LABS: Appearance Urine Clear (Clear); Bilirubin Urine Negative (Negative); Blood Urine Negative (Negative); Color Urine Yellow (Yellow); Glucose Urine UA Negative (Negative); Ketones Urine 1+ mg/dL (Negative); Leukocyte Esterase Ur Negative LEU/UL (Negative); Nitrate Urine Negative (Negative); Protein Urine Negative (Negative); Specific Grav Ur 1.024 (1.001-1.035); Urobilinogen Urine 0.2 mg/dL (<2.0); pH Urine 5.5 (5.0-9.0)
[2023-02-01 00:41] LABS: Add Urine Microscopic? NO
[2023-02-01 00:46] VITALS: BP 104/53; PULSE 89; RESP 25; O2SAT 96
[2023-02-01] MEDS: DOXYCYCLINE HYCLATE 100 MG TABLET PO (02:40)
[2023-02-01 02:43] VITALS: BP 108/62; PULSE 81; RESP 20; TEMP 36.6; O2SAT 98
== END 2023-02-01 02:44 | disposition home or self-care (01) ==
PROVIDERS: Emergency Provider Emergency Medicine
DX: R50.9 Fever, unspecified (principal); Z20.822 Contact with and (suspected) exposure to COVID-19; F17.290 Nicotine dependence, other tobacco product, uncomplicated
CPT/HCPCS: 36415; 70450; 71045; 80053; 81003; 83605; 83735; 84145; 85025; 85610; 85652; 85730; 86140; 87040; 87636; 87651; 93005; 96361; 96365; 99284; A9270; J3475; J7030

== ENCOUNTER 2023-08-30 09:36 | Emergency (ER) | payer OTHER, SELFPAY ==
--- NOTE | ~2023-08-30 | XR_ITS ---
EXAMINATION: XR hand RT min 3V INDICATION: Right hand pain TECHNIQUE: Three views of the right hand are obtained. COMPARISON: None available FINDINGS: No fracture, dislocation, or subluxation. The bones, soft tissues, and joint spaces are nor mal. IMPRESSION: 1. No acute osseous abnormality. Reviewed, dictated and finalized at location A.
[2023-08-30 09:39] VITALS: BP 136/76; PULSE 70; RESP 18; TEMP 36.6; O2SAT 100
--- NOTE | 2023-08-30 14:01 | ED.UPPEXIN ---
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 Related Data Allergies Allergy/AdvReac Type Severity Reaction Status Date / Time No Known Allergies Allergy Verified 11/01/22 19:38 Review of Systems Review of Systems: CONST: No fever. M/S: Hand pain SKIN: Bruising and swelling to right hand NEURO: [No focal numbness or weakness] PMFSH Family History Family History Mother Acute myocardial infarction Hypertension Grandparent Acute myocardial infarction Asthma Cerebrovascular accident History of blood clots Chronic obstructive pulmonary disease Colon cancer Congestive heart failure Diabetes mellitus Hypertension Sibling Asthma Father Diabetes mellitus Prostate carcinoma Social History Social History Smoking status: Current every day smoker Tobacco type: e-cigarettes/vaping Alcohol intake: never Substance use: never Lack of Transportation: No Lack of Food: Never True Current Housing: I Have Housing Concerned About Future Housing: No Difficulty Paying Gas/Electric Bills: No Difficulty Paying for Meds: No Currently Unemployed: No Education: High School Diploma/GED Difficulty w/ Childcare or Family Care: No Spiritual care concerns: No Exam Narrative: EXAMINATION OF ORGAN SYSTEMS/BODY AREAS: Constitutional: Vital signs per nursing GENERAL:[No acute distress, non-toxic appearing.] HEAD: Normal with no signs of head trauma. EYES: EOMI, conjunctiva normal ENT: Hearing grossly intact LUNGS: Nonlabored breathing. HEART: [Regular rate and rhythm] EXT: Normal range of motion, swelling/hematoma to dorsal right hand SKIN: Swelling/hematoma to dorsal right hand NEURO: [Alert and oriented x 3. No gross focal sensory or strength deficits.] PSYCH: Normal affect Course Vital Signs Vital signs: Vital Signs Temperature 97.9 F 08/30/23 09:39 Pulse Rate 70 08/30/23 09:39 Respiratory Rate 18 08/30/23 09:39 Blood Pressure 136/76 08/30/23 09:39 Pulse Oximetry 100 08/30/23 09:39 Oxygen Delivery Room Air 08/30/23 09:39 Temperature 97.9 F 08/30/23 09:39 Pulse Rate 70 08/30/23 09:39 Respiratory Rate 18 08/30/23 09:39 Blood Pressure 136/76 08/30/23 09:39 Pulse Oximetry 100 08/30/23 09:39 Oxygen Delivery Room Air 08/30/23 09:39 MDM - Extremity Injury (Upper) MDM Narrative Medical decision making narrative: Patient presenting here with hand injury, he does have swelling/ecchymosis to his right hand but has normal range of motion able make a fist, no obvious deformity, good capillary refill and normal radial pulses. X-ray obtained, I did review independently did not know any obvious fracture, patient given work note and follow-up to hand surgery as needed. Stable for discharge at this time. Discharge Plan Discharge Clinical Impression: Hematoma of right hand Patient Disposition: Home, Self-Care Condition: Stable Instructions: Antibiotic Form, Hematoma (ED) Additional Instructions: Use ice and take ibuprofen/tylenol until healed; you can follow up with your own doctor or come back for any further issues. Prescriptions: No Action doxycycline hyclate 100 mg tablet 100 mg PO BID 14 Days Qty: 28 0RF doxycycline hyclate 100 mg capsule 100 mg PO BID Qty: 28 0RF valacyclovir 1 gram tablet 1,000 mg PO Q8H 14 Days Qty: 42 0RF Follow-up/Referrals: Collin Velez MD [Physician] - 2 Days PHYSICIAN NOT ON STAFF,NONSTAFF [Non-Staff] - Stand Alone Forms: Work/School Release IP
== END 2023-08-30 11:20 | disposition home or self-care (01) ==
PROVIDERS: Emergency Provider Emergency Medicine
DX: S60.221A Contusion of right hand, initial encounter (principal); F17.290 Nicotine dependence, other tobacco product, uncomplicated; W31.89XA Contact with other specified machinery, initial encounter
CPT/HCPCS: 73130; 99283